=== PATIENT | female | born 1990 | race Caucasian/White ===

== ENCOUNTER → 2024-01-15 08:21 | Outpatient (REF) | payer OTHER, SELFPAY | LOC: HWRAD 08:21 | PROVIDERS: ATTENDING PHYSICIAN Family Medicine | DX: R31.29 Other microscopic hematuria (principal); R07.81 Pleurodynia | CPT/HCPCS: 71101; 76775 ==

== ENCOUNTER → 2025-08-01 16:06 | Outpatient (REF) | payer BC, SELFPAY | LOC: RAD 16:06 | PROVIDERS: ATTENDING PHYSICIAN Physician Assistant Medical | DX: M25.512 Pain in left shoulder (principal) | CPT/HCPCS: 73030 ==